=== PATIENT | male | born 1985 | race Caucasian/White ===

== ENCOUNTER 2021-04-16 12:13 | Outpatient (CLI) | payer BC, SELFPAY ==
--- NOTE | ~2021-04-16 | PE_ITS ---
EXAMINATION: PET skull to mid thigh DATE: 04/16/2021 14:01 INDICATION: Solitary lung nodule. TECHNIQUE: Blood glucose level was 103 mg/dL. 9.498 mCi of 18-fluorodeoxyglucose (18-FDG) was adminis tered i.v. Low dose computed tomography (CT) images were acquired from the base of the brain to the p roximal thighs for attenuation correction and anatomic localization. Automated exposure control was e mployed. Dose-length product (DLP) was 1309 mGy-cm. Positron emission tomography (PET) images were ac quired in the same distribution. COMPARISON: None FINDINGS: Head/neck: There is increased activity in the oral cavity, sublingual glands, oropharynx, and glottis without abnormal CT correlate, likely physiologic. There are no pathologically enlarged lymph nodes. Chest: The lungs demonstrate mild atelectasis. In the right lower lobe, there is a 1.6 cm nodule with out increased activity. No pleural effusion. The heart size is normal. No pericardial effusion. Abdomen/pelvis/proximal thighs: There is diffuse hepatic steatosis. The gallbladder, spleen, pancreas , adrenal glands, and kidneys are normal. There are no dilated loops of bowel. There are no pathologi brent enlarged lymph nodes. There is no free intraperitoneal fluid. There is no osseous malignancy. IMPRESSION: 1. 1.6 cm nodule without increased activity in right lung lower lobe, probably benign. Low-grade prim deidra bronchogenic carcinoma is not excluded. Noncontrast low-dose chest CT is recommended in 3-6 month s. Reviewed, dictated and finalized at location A. IMPRESSION: 1. 1.6 cm nodule without increased activity in right lung lower lobe, probably benign. Low-grade primary bronchogenic carcinoma is not excluded. Noncontrast l ow-dose chest CT is recommended in 3-6 months.
[2021-04-16 12:40] LABS: Glucose Point of Care 103 mg/dl (65-105)
== END 2021-04-16 12:14 | disposition home or self-care (01) ==
PROVIDERS: PCP Nurse Practitioner Family
DX: R91.1 Solitary pulmonary nodule (principal)
CPT/HCPCS: 78815; A9552

== ENCOUNTER 2021-05-27 14:56 | Outpatient (CLI) | payer BC, SELFPAY ==
[2021-06-01 15:12] LABS: BCR/abl Prior Result Not Given
[2021-06-01 16:00] LABS: BCR/abl P190 Not Detected; BCR/abl P210 Not Detected
[2021-06-01 16:01] LABS: BCR/abl P190 Chg YES; BCR/abl P210 Chg YES
== END 2021-05-27 14:57 | disposition home or self-care (01) ==
PROVIDERS: PCP Nurse Practitioner Family; Visit Provider Internal Medicine Hematology & Oncology
DX: D72.829 Elevated white blood cell count, unspecified (principal)
CPT/HCPCS: 36415; 81206; 81207; 88184

== ENCOUNTER 2021-12-21 08:45 | Outpatient (CLI) | payer BC, SELFPAY ==
--- NOTE | ~2021-12-21 | MR_ITS ---
EXAMINATION: MR knee RT w con DATE: 12/21/2021 10:09 INDICATION: Right knee pain. TECHNIQUE: Magnetic resonance imaging (MRI) of the right knee was performed without intravenous contr ast. Sequences included coronal PD-weighted FSE, coronal PD-weighted FS FSE, sagittal T2-weighted FS E, sagittal PD-weighted FS FSE and axial PD weighted fat saturated FSE. COMPARISON: None. FINDINGS: Medial compartment: The medial meniscal body and posterior horn are small. Contrast fills a linear longitudinal tear plan e extending obliquely to the inferior articular surface of the body and posterior horn. Mild partial- thickness cartilage loss along the anterior weightbearing medial femoral condyle and medial side of t he medial tibial plateau. Small focus of subarticular edema-like marrow signal change along the media l rim of the medial tibial plateau likely related to the overlying chondromalacia. Lateral compartment: Lateral meniscus is normal. Articular cartilage is normal. Patellofemoral compartment: Deep chondral fissuring without degenerative subchondral changes at the medial patellar facet. Partia l-thickness chondral ulceration with partial-thickness chondral fissuring at the inferior aspect of t he lateral patellar facet. Trochlear cartilage is normal. Ligaments and tendons: Anterior and posterior cruciate ligaments are normal. The medial collateral ligament and fibular luann ateral ligament complex are normal. The extensor mechanism is normal. The visualized medial and later al hamstring tendons as well as the iliotibial band are normal. Fluid: No loose osteochondral bodies identified. No Talbot's cyst, bursitis or other abnormal fluid collectio ns. Osseous/other: Normal marrow signal aside from the previous noted small focus of subarticular edema-like signal lares ge at the medial tibial plateau. No fracture or pathologic marrow replacing process. IMPRESSION: 1. Small body and posterior horn of the medial meniscus consistent with prior partial meniscectomy wi th residual/recurrent longitudinal tear of the body and posterior horn. 2. Mild osteoarthritis in the medial and patellofemoral compartments with chondromalacia as detailed above. Reviewed, dictated and finalized at location A. IMPRESSION: 1. Small body and posterior horn of the medial meniscus consistent with prior p artial meniscectomy with residual/recurrent longitudinal tear of the body and p osterior horn. 2. Mild osteoarthritis in the medial and patellofemoral compartments with chond romalacia as detailed above.
--- NOTE | ~2021-12-21 | XR_ITS ---
EXAMINATION: XR fl inj knee RT for MR/CT DATE: 12/21/2021 09:41 INDICATION: Right knee pain. Prior surgery for meniscal tears. TECHNIQUE: A time-out was performed to verify the patient's name, date of , and procedure to b e performed. The procedure including the risks, benefits, and alternatives was discussed with the pat ient. Risks discussed included bleeding and infection. The patient understood the risks and agreed to proceed. The skin overlying the lateral aspect of the right knee joint was prepped and draped in us ua sterile fashion. Anesthetic was administered with 1% lidocaine subcutaneously. A 22 G needle wa s advanced under fluoroscopic guidance into the joint. Injection of 1 mL of Omnipaque 240 confirmed intra-articular position of the needle. Subsequently, injectate consisting of 40 mL of 8:3:1 mixture of sterile saline:Omnipaque 240:1% lidocaine mixed 200:1 with 529 mg/mL Multihance gadolinium contra st was injected. Washout of contrast was seen confirming intra-articular administration. The needle w as removed and the entry site was cleaned and dressed. There were no immediate complications. Fluoro scopy exposure time was 0.1 minutes. The total number of images was 8. FINDINGS: Real-time fluoroscopy demonstrates the needle in the right knee joint. IMPRESSION: 1. Successful right knee joint injection of dilute gadolinium contrast mixture percent but an MRI art hrogram which will be dictated separately. Reviewed, dictated and finalized at location A. IMPRESSION: 1. Successful right knee joint injection of dilute gadolinium contrast mixture percent but an MRI arthrogram which will be dictated separately.
== END 2021-12-21 08:46 | disposition home or self-care (01) ==
PROVIDERS: PCP Family Medicine Sports Medicine; Visit Provider Orthopaedic Surgery
DX: M25.561 Pain in right knee (principal); M17.11 Unilateral primary osteoarthritis, right knee
CPT/HCPCS: 20610; 73722; 77002; A9577; Q9966

== ENCOUNTER 2023-03-04 13:07 | Outpatient (CLI) | payer MEDICARE, SELFPAY ==
--- NOTE | ~2023-03-04 | CT_ITS ---
EXAMINATION: CT knee RT w con DATE: 03/04/2023 14:18 INDICATION: Right knee pain TECHNIQUE: High resolution computed tomography (CT) arthrogram of the right knee was performed with i ntra-articular contrast but without intravenous contrast. Details of the contrast mixture and joint i njection have been dictated separately. Additional sagittal and coronal reconstructions were performe d. Automated exposure control and iterative reconstruction technique were employed. The dose-length p roduct was 471.86 mGy-cm. COMPARISON: Right knee MRI dated 12/21/2021 FINDINGS: Interval placement of a cemented medial unicompartmental arthroplasty which appears well seated in ne ar-anatomic alignment. No periprosthetic lucency or extension of intra-articular contrast along the b one cement interface to suggest loosening. No fracture. No evident tear of the lateral meniscus. Ther e is partial thickness chondral ulceration and fissuring involving greater than 50% the cartilage thi ckness along the anterior weightbearing lateral femoral condyle and along the lateral margin of the p osterior weightbearing lateral femoral condyle. Shallow chondral fissuring involving less than 50% th e cartilage thickness at the central aspect of the lateral tibial plateau. Additional deep chondral u lceration with scattered mild surface irregularity involving the patellar apical ridge, medial facet and caudal aspect of the lateral facet as well as diffusely throughout the trochlea. Although there w as deep chondral fissuring at the medial patellar facet on the prior MRI of the extensive cartilage l oss in the patellofemoral compartment appears new since the prior MRI. IMPRESSION: 1. Medial unicompartmental arthroplasty at the right knee which appears well seated with no evident l oosening or acute osseous abnormality. 2. Mild osteoarthritis with moderate grade chondromalacia in the lateral compartment. 3. Moderate to severe patellofemoral osteoarthritis which is significantly progressed since the MRI d ated 12/21/2021 Reviewed, dictated and finalized at location A. IMPRESSION: 1. Medial unicompartmental arthroplasty at the right knee which appears well se ated with no evident loosening or acute osseous abnormality. 2. Mild osteoarthritis with moderate grade chondromalacia in the lateral compar tment. 3. Moderate to severe patellofemoral osteoarthritis which is significantly prog ressed since the MRI dated 12/21/2021
--- NOTE | ~2023-03-04 | XR_ITS ---
EXAMINATION: XR fl inj knee RT for MR/CT DATE: 03/04/2023 14:03 INDICATION: Right knee pain TECHNIQUE: A time-out was performed to verify the patient's name, date of , and procedure to b e performed. The procedure including the risks, benefits, and alternatives was discussed with the pat ient. Risks discussed included bleeding and infection. The patient understood the risks and agreed to proceed. The skin overlying the lateral aspect the right knee joint was prepped and draped in usual sterile fashion. Anesthetic was administered with 1% lidocaine subcutaneously. A 22 G needle was a dvanced under fluoroscopic guidance into the joint. Injectate consisting of 40 mL of a 4:3:2 mixture sterile saline:Omnipaque 240:1% lidocaine was injected with intra-articular administration confirmed with intermittent fluoroscopy. The needle was removed and the entry site was cleaned and dressed. Th ere were no immediate complications. Fluoroscopy exposure time was 0.2 minutes. The total number of i mages was 13 FINDINGS: Real-time fluoroscopy demonstrates the needle in the right knee joint. There is a cemented medial unicompartmental arthroplasty at the right knee. IMPRESSION: 1. Successful right knee joint injection of an iodinated contrast mixture for subsequent CT arthrogra m which will be dictated separately. Reviewed, dictated and finalized at location A. IMPRESSION: 1. Successful right knee joint injection of an iodinated contrast mixture for s ubsequent CT arthrogram which will be dictated separately.
== END 2023-03-04 13:08 | disposition home or self-care (01) ==
PROVIDERS: PCP Family Medicine Sports Medicine; Visit Provider Orthopaedic Surgery
DX: M25.561 Pain in right knee (principal)
CPT/HCPCS: 20610; 73701; 77002; Q9966

== ENCOUNTER 2023-06-29 21:03 | Emergency (ER) | payer MEDICARE, SELFPAY ==
[2023-06-29 21:04] VITALS: BP 138/86; PULSE 95; RESP 15; TEMP 36.9; O2SAT 96
[2023-06-29 21:22] LABS: Basophils Absolute Auto 0.1 K/mm3 (0.0-0.1); Basophils Percent Auto 0.3 % (0.2-1.2); Eosinophils Absolute Auto 0.2 K/mm3 (0-0.3); Eosinophils Percent Auto 1.1 % (0-4.4); Hematocrit 48.3 % (42.0-52.0); Hemoglobin 16.4 g/dL (14.0-18.0); Immature Granulocyte Absolute 0.07 K/mm3 (0.00-0.031); Immature Granulocyte Percent A 0.5 % (0-0.5); Lymphocytes Absolute Auto 1.85 K/mm3 (0.9-3.2); Lymphocytes Percent Auto 12.3 % (18.3-44.2); Mean Corpuscular Hemoglobin 29.5 pg (26-34); Mean Platelet Volume 8.9 fl (7.4-10.4); Monocytes Absolute Auto 1.4 K/mm3 (0.1-0.6); Monocytes Percent Auto 9.2 % (2.6-8.5); Neutrophils Absolute Auto 11.5 K/mm3 (1.3-6.7); Neutrophils Percent Auto 76.6 % (45.5-73.1); Platelet Count Result 387 k/mm3 (150-375); Red Blood Count 5.55 M/mm3 (4.6-6.20); Red Cell Distribution Width 13.2 % (11.5-14.5)
[2023-06-29 21:32] LABS: Alanine Aminotransferase 38 U/L (6-50); Albumin Level 4.8 g/dL (3.5-5.1); Alkaline Phosphatase 99 U/L (38-126); Anion Gap 14 mmol/L (8-16); Aspartate Amino Transferase 30 U/L (17-59); Bilirubin,Total 0.8 mg/dL (0.2-1.3); Blood Urea Nitrogen 9 mg/dL (9-20); Calcium 9.8 mg/dL (8.4-10.2); Carbon Dioxide 21 mmol/L (22-30); Chloride 104 mmol/L (98-107); Estimated CRCL calculation 191 ml/min; Estimated Glomerular Filt Rate > 60; Glucose 126 mg/dL (65-110); Lipase 23 U/L (23-300); Potassium 3.8 mmol/L (3.4-5.0); Sodium 139 mmol/L (137-145)
[2023-06-29 22:04] VITALS: BP 127/81; PULSE 113; RESP 15; O2SAT 98
[2023-06-29] MEDS: ONDANSETRON INJ 4 MG/2 ML VIAL IV PUSH ×2 (22:06→22:29)
--- NOTE | 2023-06-29 22:06 | ED.NAVMDI ---
HPI - Nausea/Vomiting/Diarrhea General Chief complaint: Nausea/Vomiting/Diarrhea Stated complaint: vomiting Time Seen by Provider: 06/29/23 22:00 Source: patient Limitations: no limitations History of Present Illness HPI Narrative: This is a 38 yo male who presents with vomiting, nausea, and diarrhea. The diarrhea has been non-bloody. Emesis has been non-bloody. His fiance has the same symptoms. No fevers but he has been alternating between feeling hot and cold and was diaphoretic. No abdominal pain or GI history. Related Data Home Medications Medication Instructions Recorded Confirmed fenoprofen 400 mg capsule (Nalfon) 400 mg PO TID 07/02/19 07/02/19 pantoprazole 20 mg tablet,delayed 20 mg PO QAM 07/02/19 07/02/19 release Allergies Allergy/AdvReac Type Severity Reaction Status Date / Time bee venom protein (honey bee) Allergy Unknown swelling Verified 07/03/19 09:52 codeine Allergy Unknown Hives Verified 07/03/19 09:52 meperidine Allergy Unknown Fever Verified 07/03/19 09:52 [facility] Past Medical History Medical History (Updated 07/04/23 @ 10:31 by Mary Flynn MD) FH: CAD (coronary artery disease) FH: diabetes mellitus Hypersomnolence Hypogonadism, male Inflammatory polyps of colon with unspecified complications 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 Sleep apnea, obstructive Tobacco abuse Surgical History Surgical History (Updated 07/04/23 @ 10:30 by Mary Flynn MD) H/O: vasectomy History of knee replacement procedure of right knee Family History Family History Grandparent Carcinoma of colon Mother Family history of malignant neoplasm of ovary Diabetes mellitus Father Family history of cardiovascular disease Social History Social History (Updated 07/04/23 @ 10:31 by Mary Flynn MD) Social History: Engaged/has a fiance Second hand tobacco smoke exposure: Yes Alcohol intake: current Exam Narrative: GENERAL: Well-appearing, well-nourished HEAD: Normocephalic, atraumatic. EYES: Eyes not sunken. No photophobia. ENT: Nares clear, no rhinorrhea or epistaxis. Mucous membranes tacky. NECK: Supple. No meningismus CHEST: Clear to auscultation. No respiratory distress. HEART: Regular rate and rhythm. Warm and well perfused. ABDOMEN: Soft, nontender to palpation, nondistended, EXTREMITIES: No edema. Left lower leg amputation. SKIN: Warm, dry, no rash. NEURO: No focal deficits. Alert and oriented x3. PSYCH: Normal mood and affect. Course Vital Signs Vital signs: Vital Signs Temperature 98.4 F 06/29/23 21:04 Pulse Rate 95 06/29/23 21:04 Respiratory Rate 15 06/29/23 21:04 Blood Pressure 138/86 06/29/23 21:04 Pulse Oximetry 96 06/29/23 21:04 Oxygen Delivery Room Air 06/29/23 21:04 Temperature 97.5 F L 06/30/23 01:18 Pulse Rate 104 H 06/30/23 01:18 Respiratory Rate 23 H 06/30/23 01:18 Blood Pressure 127/98 H 06/30/23 01:18 Pulse Oximetry 100 06/30/23 01:18 Oxygen Delivery Room Air 06/29/23 21:04 MDM - Nausea/Vomiting/Diarrhea MDM Narrative Medical decision making narrative: Patient is a year old who presents with nausea/vomiting/diarrhea. In the ED he is afebrile with vital signs initially within normal limits but then tachycardic with a heart rate of 113. I suspect gastroenteritis, likely viral, especially since alan has similar symptoms. Abdominal exam is benign and reassuring. Patient is given Zofran and IV fluids while obtaining labs. Labs are unremarkable as below. Upon reassessment, patient states he is feeling much better. He successfully PO challenges and is stable for discharge. Differential Diagnosis Differential diagnosis: Likely traveler's diarrhea, food poisoning, gastroenteritis, drug-induced nausea and vomiting and dehydration Lab Data Attestation: I reviewed the patient's lab results. Lab results na
--- NOTE | 2023-06-29 22:11 | PC.NURSE ---
Pt reports 20-30 episodes of vomiting throughout the day
[2023-06-29 23:09] LABS: Influenza A QL RT-PCR Negative (Negative); Influenza B QL RT-PCR Negative (Negative); SARS-CoV-2 RNA PCR Negative (Negative)
[2023-06-29] MEDS: SODIUM CHLORIDE 0.9% IV 1,000 ML 999 ML IV CONT (23:44)
[2023-06-30 01:04] LABS: Appearance Urine Clear (Clear); Bacteria Urine None Seen /hpf; Bilirubin Urine 1+ (Negative); Blood Urine Negative (Negative); Color Urine Dark Yellow (Yellow); Glucose Urine UA Negative (Negative); Ketones Urine Trace mg/dL (Negative); Leukocyte Esterase Ur Trace LEU/UL (Negative); Nitrate Urine Negative (Negative); Non Pathogenic Casts 0-2; Protein Urine Trace mg/dL (Negative); Specific Grav Ur 1.025 (1.001-1.035); Squamous Epithelial Cell Urine None seen /hpf (Few); WBC Urine 0-5 /hpf
[2023-06-30 01:13] LABS: Add Urine Microscopic? YES
[2023-06-30 01:18] VITALS: BP 127/98; PULSE 104; RESP 23; TEMP 36.4; O2SAT 100
== END 2023-06-30 01:19 | disposition home or self-care (01) ==
PROVIDERS: Emergency Provider Student in an Organized Health Care Education/Training Program; PCP Family Medicine
DX: K52.9 Noninfective gastroenteritis and colitis, unspecified (principal); Z20.822 Contact with and (suspected) exposure to COVID-19; G47.33 Obstructive sleep apnea (adult) (pediatric); Z96.651 Presence of right artificial knee joint; Z89.512 Acquired absence of left leg below knee
CPT/HCPCS: 36415; 80053; 81001; 83690; 85025; 87636; 96361; 96374; 99284; J2405; J7030